=== PATIENT | female | born 1995 | race Caucasian/White ===

== ENCOUNTER 2020-05-23 16:17 | Outpatient (REF) | payer OTHER, SELFPAY | END 2020-05-23 16:18 | disposition home or self-care (01) | LOC: HO.LAB 16:17 | PROVIDERS: Visit Provider Internal Medicine | DX: Z20.828 Contact with and (suspected) exposure to other viral communicable diseases (principal) | CPT/HCPCS: C9803; U0003 ==

== ENCOUNTER → 2020-08-08 15:33 | Outpatient (BNVA) | payer OTHER, SELFPAY | PROVIDERS: PCP Internal Medicine; Visit Provider Obstetrics & Gynecology ==